=== PATIENT | female | born 1975 | race Two or more races ===

== ENCOUNTER → 2022-10-01 | Emergency (ER) | payer OTHER ==
[~2022-10-01] VITALS: Ht 152.4 cm; Wt 77.1 kg
[~2022-10-01] MED LIST: GABAPENTIN100 M2; INDERAL XL80 MG; OMEPRAZOLE MAGN20 MG
== END | disposition left against medical advice (07) ==
LOC: ER 10:39
DX: Z53.21 Procedure and treatment not carried out due to patient leaving prior to being seen by health care provider (principal)